=== PATIENT | female | born 1955 | race Caucasian/White ===

== ENCOUNTER 2018-02-02 17:07 | Inpatient (IN) | payer BC, MEDICAID ==
[~2018-02-02] VITALS: Ht 160 cm; Wt 68.0 kg
[2018-02-02] MEDS ORDERED: LEVO0.2T5 PO (17:11)
[2018-02-02] MEDS ORDERED: KEP500 PO (17:11)
[2018-02-02 17:12] VITALS: BP 171/136
[2018-02-02] MEDS ORDERED: TYLENOL 650MG PO (17:13)
[2018-02-02] MEDS ORDERED: MAGN400S60 PO (17:13)
[2018-02-02] MEDS ORDERED: DEXT1CAP3 PO (17:14)
[2018-02-02] MEDS ORDERED: OSC500 PO (17:17)
[2018-02-02] MEDS ORDERED: CALC-1214 PO (17:17)
[2018-02-02] MEDS ORDERED: NACL 0.9% 1,000 ML IV ONE (17:30)
--- NOTE | 2018-02-02 17:30 | NUR ---
PATIENT FROM F FOR ABNORMAL LABS WITH A TSH OF 100.72.Pt non verbal keeps on mumbling; VSS;No respiratory distress noted; all monitors in placed;Blood drawn and sent to lab; pt possition to comfort;needs attended;safety precaution instituted;Er Md aware of pt's condition;
[2018-02-02 17:54] LABS: HEMOGLOBIN 13.3 g/dL (12.0-16.0); MEAN CORPUSCULAR VOLUME 81.3 fL (80-94); RED BLOOD CELL COUNT(AUTO) 5.04 MIL/uL (4.20-5.40); WHITE BLOOD COUNT (AUTO) 7.9 K/uL (4.8-10.8)
[2018-02-02 17:55] LABS: BASOPHILS % (AUTO) 0.2 % (0.0-2.0); EOSINOPHILS # (AUTO) 0.1 K/uL (0-0.4); EOSINOPHILS % (AUTO) 0.7 % (0.0-4.0); LYMPHOCYTES # (AUTO) 1.7 K/uL (2.5-16.5); LYMPHOCYTES % (AUTO) 21.7 % (20.5-51.1); MEAN CORPUSCULAR HEMOGLOBIN 26 pg (27-31); MEAN CORPUSCULAR HGB CONC 33 g/dL (33-37); MONOCYTES # (AUTO) 0.7 K/uL (0.8-1.0); MONOCYTES % (AUTO) 8.3 % (1.7-9.3); NEUTROPHILS # (AUTO) 5.5 K/uL (1.8-7.7); NEUTROPHILS % (AUTO) 69.1 % (42.2-75.2); PLATELET COUNT (AUTO) 270 K/uL (140-450)
[2018-02-02 19:05] LABS: SODIUM SERUM 141 mmol/L (136-145)
[2018-02-02 19:06] LABS: ANION GAP 15.5 (8-16); CARBON DIOXIDE 27.2 mmol/L (21-32); CHLORIDE 102 mmol/L (98-107); CREATININE 0.9 mg/dL (0.6-1.3); GFR ARICAN-AMERICAN 81 mL/min (>90); GLUCOSE 119 mg/dL (74-106); POTASSIUM 3.7 mmol/L (3.5-5.1); UREA NITROGEN, BLOOD 14 mg/dL (7-18)
[2018-02-02 19:25] LABS: ASPARTATE AMINOTRANSFERASE 15 U/L (15-37); TOTAL BILIRUBIN 0.3 mg/dL (0.0-1.0)
[2018-02-02 19:26] LABS: ACETAMINOPHEN < 0.5 ug/ml (10-30); ALBUMIN 4.1 g/dL (3.4-5.0); SALICYLATE < 2.8 mg/dL (2.8-20.0)
[2018-02-02] MEDS ORDERED: NACL 0.9% 1,000 ML IV SCH (20:03)
[2018-02-02] MEDS ORDERED: DOCUSATE SODIUM 100 MG GELCAP PO PRN (20:05)
[2018-02-02] MEDS ORDERED: ACETAMINOPHEN 325 MG TAB PO PRN ×2 (20:05→20:55)
[2018-02-02] MEDS ORDERED: ONDANSETRON 4 MG/2 ML VIAL IM/IVP PRN (20:05)
[2018-02-02] MEDS ORDERED: LORazepam 2 MG/ML VIAL IVP PRN (20:55)
[2018-02-02] MEDS ORDERED: HYDROcodone/APAP 5/325 MG 1 TAB TAB PO PRN ×2 (20:55)
[2018-02-02] MEDS ORDERED: ONDANSETRON 4 MG/2 ML VIAL IVP PRN (20:55)
[2018-02-02 20:56] LABS: BARBITURATE, URINE NEGATIVE ng/ml (NEG <=200); BENZODIAZEPINE, URINE NEGATIVE ng/mL (NEG <=200); CANNABINOID, URINE NEGATIVE ng/mL (NEG <=50); COCAINE, URINE NEGATIVE ng/mL (NEG <=300); OPIATE, URINE NEGATIVE ng/mL (NEG <=2000); PHENCYCLIDINE SCREEN,URINE NEGATIVE ng/mL (NEG <=25)
[2018-02-02] MEDS ORDERED: NON-FORMULARY ITEM (Dextromethorphan HBr/Quinidine (Nuedexta 20-10 mg Capsule) 1 CAP) PO SCH (21:00)
[2018-02-02 21:03] LABS: APPEARANCE,URINE CLEAR (CLEAR); COLOR,URINE YELLOW (YELLOW)
[2018-02-02 21:04] LABS: BILIRUBIN,URINE NEGATIVE (NEGATIVE); BLOOD, URINE TRACE (NEGATIVE); LEUKOCYTE ESTERASE ,URINE 1+ (NEGATIVE); NITRITE, URINE NEGATIVE (NEGATIVE); UGLUCOSE NEGATIVE (NEGATIVE)
--- NOTE | 2018-02-02 21:21 | NUR ---
REPORT GIVEN AND CARE TRANSFERED TO JOSE BALLESTEROS. TRANSFERED TO ROOM 111B VIA [place] WITH VSS.
[2018-02-02 21:25] LABS: RBC,URINE 0-5 (RARE) /HPF (0-5)
[2018-02-02 21:26] LABS: URINE AMORPHOUS URATE 1+ /HPF (None Seen)
[2018-02-02 21:45] VITALS: BP 155/91
[2018-02-02] MEDS: NACL 0.9% 1,000 ML IV SCH (21:45)
--- NOTE | 2018-02-02 21:45 | NUR ---
RECEIVED PT FROM ER VIA [facility] REPORT GIVEN AT BED SIDE PT AOX1 FOLLOW SIMPLES COMMANDS NOT DISTRESS NOTED O IV ON RT HAND INFUSING WELL HL ON LEFT HAND PATENT ON TELEMETRY SR SKIN IS INTACT PT MUMBLING ORIENTED TO THE FLOOR CALL LIGHT WITHIN REACH MRSA NARES SCREEN DONE AND SENT TO LAB
[2018-02-02] MEDS: levETIRAcetam 500 MG TAB PO SCH (22:15)
--- NOTE | 2018-02-02 22:32 | NUR ---
PT REPOSITIONED A BIG BM SPONGE BATH GIVEN LIEN CHANGED
[2018-02-03] VITALS: BP 110/76
--- NOTE | 2018-02-03 01:00 | NUR ---
PT SLEEPING NOT SIGNS OF DISTRESS NOTED ON TELEMETRY SR REPOSITIONED Q2H , IV ON RT HAND INFUSING WELL
[2018-02-03 04:00] VITALS: BP 90/64
--- NOTE | 2018-02-03 04:30 | NUR ---
SPONGE BATH GIVEN LINEN CHANGED IV ON RT HAND INFUSING WELL REPOSITIONED Q2H ON TELEMETRY SR
[2018-02-03] MEDS ORDERED: LEVOTHYROXINE 200 MCG VIAL IV SCH (06:30)
[2018-02-03] MEDS: NACL 0.9% 1,000 ML IV SCH ×2 (06:54→20:58)
--- NOTE | 2018-02-03 07:00 | NUR ---
PT IS ENDORSED TO DOMINIC BALLESTEROS FOR CONTINUITY OF CARE, PT ON TELMETRY SR
--- NOTE | 2018-02-03 07:02 | NUR ---
RECEIVED BEDSIDE REPORT FROM RACKMAN NURSE. PATIENT IS AWAKE. ALERT AND ORIENTEDX1. SHE IS MUMBLING, THAT IS HER BASELINE. SHE IS BEDBOUND. BED ALARM IS ON. SKIN IS INTACT. SHE IS INCONTINENT. TELE MONITOR IN PLACE. R HAND 22G INFUSING NS AT 75ML/HR. IV IS CLEAN, DRY AND INTACT. L HAND 22G SALINE LOCK. BED IN LOW POSITION. CALL LIGHT WITHIN REACH. WILL CONTINUE TO MONITOR THE PATIENT
[2018-02-03 07:49] LABS: BASOPHILS % (AUTO) 0.3 % (0.0-2.0); EOSINOPHILS # (AUTO) 0.1 K/uL (0-0.4); EOSINOPHILS % (AUTO) 1.6 % (0.0-4.0); HEMATOCRIT 37.1 % (36-48); HEMOGLOBIN 12.1 g/dL (12.0-16.0); LYMPHOCYTES # (AUTO) 1.6 K/uL (2.5-16.5); LYMPHOCYTES % (AUTO) 26.2 % (20.5-51.1); MEAN CORPUSCULAR HEMOGLOBIN 26 pg (27-31); MEAN CORPUSCULAR HGB CONC 33 g/dL (33-37); MEAN CORPUSCULAR VOLUME 81.2 fL (80-94); MONOCYTES # (AUTO) 0.5 K/uL (0.8-1.0); MONOCYTES % (AUTO) 8.1 % (1.7-9.3); NEUTROPHILS # (AUTO) 3.8 K/uL (1.8-7.7); NEUTROPHILS % (AUTO) 63.8 % (42.2-75.2); PLATELET COUNT (AUTO) 249 K/uL (140-450); RED BLOOD CELL COUNT(AUTO) 4.57 MIL/uL (4.20-5.40); RED CELL DISTRIBUTION WIDTH 15.7 % (11.6-13.7); WHITE BLOOD COUNT (AUTO) 5.9 K/uL (4.8-10.8)
[2018-02-03 08:00] VITALS: BP 136/87
[2018-02-03 08:32] LABS: MAGNESIUM 1.9 mg/dL (1.8-2.4); PHOSPHORUS 3.7 mg/dL (2.5-4.9)
[2018-02-03 08:34] LABS: ANION GAP 15.7 (8-16); CREATININE 0.9 mg/dL (0.6-1.3); POTASSIUM 3.7 mmol/L (3.5-5.1); TOTAL BILIRUBIN 0.4 mg/dL (0.0-1.0)
[2018-02-03 08:35] LABS: ALBUMIN 3.6 g/dL (3.4-5.0)
--- NOTE | 2018-02-03 08:39 | NUR ---
PATIENT HAS BEEN SCREENED AND CATEGORIZED MODERATE NUTRITION RISK. PATIENT WILL BE SEEN WITHIN 3-5 DAYS OF ADMISSION. 02/05/18 02/07/[address]
--- NOTE | 2018-02-03 09:10 | NUR ---
ADMINISTER MEDS. PATIENT TOLERATED WELL. WILL CONTINUE TO MONITOR THE PATIENT,.
[2018-02-03] MEDS: LEVOTHYROXINE 200 MCG VIAL IV SCH (09:41)
[2018-02-03] MEDS: levETIRAcetam 500 MG TAB PO SCH ×2 (09:41→20:58)
[2018-02-03] MEDS: ENOXAPARIN 40 MG/0.4 ML SYR SUBQ SCH (09:46)
--- NOTE | 2018-02-03 11:00 | NUR ---
PATIENT IS SLEEPING. NO SIGNS OF DISTRESS ON ROOM AIR. WILL CONTINUE TO MONITOR THE PATIENT.
[2018-02-03 12:00] VITALS: BP 95/63
--- NOTE | 2018-02-03 12:54 | NUR ---
PATIENT BEING FED BY LEGAL FINANCIAL SPECIALIST. PATIENT TOLERATING WELL. WILL CONTINUE TO MONITOR THE PATIENT,
--- NOTE | 2018-02-03 13:00 | NUR ---
3RD TIME ATTEMPTING TO CALL DAUGHTER AT [phone] AND SISTER AT [phone] ABOUT POLST STATUS. CHELSEY BROWN CALLED AND TOLD ME SHE WAS DNR, DO NOT INTUBATE ONLY COMFORT MEASURES. DR SAXENA IS AWARE.
--- NOTE | 2018-02-03 13:31 | NUR ---
CM NOTE INITIAL REVIEW FAXED TO [facility] [phone] PH# [phone] AND TO [facility] [phone] PH# [phone]
--- NOTE | 2018-02-03 15:11 | NUR ---
PATIENT IS SITTING IN BED. MUMBLING AND WATCHING TV. NO SIGNS OF DISTRESS ON ROOM AIR. WILL CONTINUE TO MONITOR THE PATIENT.
[2018-02-03 16:00] VITALS: BP 109/45
--- NOTE | 2018-02-03 16:55 | NUR ---
PATIENT SITTING IN BED WATCHING TV. NO SIGNS OF DISTRESS ON ROOM AIR. BED IN LOW POSITION. BED ALARM IS ON.
--- NOTE | 2018-02-03 17:01 | NUR ---
PATIENT CURRENTLY REFUSING ENEMA. SHE SAID IT DOES NOT WORK FOR HER. THE ENEMA COMES RIGHT BACK OUT CAUSE SHE HAS NO CONTROL SHE SAID. DR PALACIO IS AWARE. WILL CONTINUE TO MONITOR THE PATIENT. Addendum: 02/03/18 at 1703 by Iqra Ferrer RN WRONG PATIENT
[2018-02-03] MEDS: CEPHALEXIN 500 MG CAP PO SCH (18:12)
--- NOTE | 2018-02-03 18:14 | NUR ---
ADMINISTERED MEDS. PATIENT TOLERATED WELL. SPUD GRADER IS CURRENTLY FEEDING HER. WILL CONTINUE TO MONITOR THE PATIENT
--- NOTE | 2018-02-03 19:10 | NUR ---
GAVE BEDSIDE REPORT TO MEDICAL DEVICE SALES CONSULTANT NURSE. PATIENT ENDORSED IN STABLE CONDITION.
--- NOTE | 2018-02-03 19:15 | NUR ---
RECEIVED REPORT FROM DAY SHIFT RN FOR CONTINUITY OF CARE. PT IS A/OX1, ON ROOM AIR. PT IS UNABLE TO MAKE NEEDS KNOWN. RESPIRATIONS EVEN AND UNLABORED AT THE MOMENT. PT SKIN IS INTACT. PT HAS 22G IV TO RIGHT HAND, ASYMPTOMATIC, INTACT AND PATENT. VITAL SIGNS WITHIN NORMAL LIMITS. PT STABLE, NO SIGNS OF DISTRESS NOTED AT THIS TIME. BED IN LOWEST POSITION, BED ALARM ON. CALL LIGHT WITHIN REACH, WILL CONTINUE TO MONITOR.
[2018-02-03 20:00] VITALS: BP 128/81
--- NOTE | 2018-02-03 20:59 | NUR ---
PT VERY AGITATED KEEPS SAYING "NO NO NO NO." ADMINISTERED ATIVAN ORDERED ALONG WITH SCHEDULED MEDICATION FOR SEIZURES. PT TOLERATED WELL, NO PROBLEMS SWALLOWING NOTED. WILL CONTINUE TO MONITOR PT.
[2018-02-04] VITALS: BP 107/57
[2018-02-04] MEDS: CEPHALEXIN 500 MG CAP PO SCH ×4 (00:05→18:00)
--- NOTE | 2018-02-04 00:10 | NUR ---
ADMINISTERED SCHEDULED ABX, PT TOLERATED WELL. VITAL SIGNS WITHIN NORMAL LIMITS. PT STABLE, NO SIGNS OF DISTRESS NOTED AT THIS TIME. BED IN LOWEST POSITION, BED ALARM ON. CALL LIGHT WITHIN REACH, WILL CONTINUE TO MONITOR.
[2018-02-04 04:00] VITALS: BP 101/63
--- NOTE | 2018-02-04 04:00 | NUR ---
VITAL SIGNS WITHIN NORMAL LIMITS. PT STABLE, NO SIGNS OF DISTRESS NOTED AT THIS TIME. BED IN LOWEST POSITION, BED ALARM ON. CALL LIGHT WITHIN REACH, WILL CONTINUE TO MONITOR.
--- NOTE | 2018-02-04 07:25 | NUR ---
ENDORSED PT TO DAY SHIFT RN FOR CONTINUITY OF CARE. PT IN STABLE CONDITION.
--- NOTE | 2018-02-04 07:26 | NUR ---
RECEIVED BEDSIDE REPORT FROM SILO FILLER NURSE. PATIENT IS SLEEPING. NO SIGNS OF DISTRESS ON ROOM AIR. SHE IS BEDBOUND. BED ALARM IS ON. SKIN IS INTACT. REMOVED IV ON L HAND IT IS NOT INTACT. CLEANSED IV ON R HAND 22G THERE WAS BLOOD. STILL PATENT. INFUSING NS AT 75ML/HR. TELE MONITOR IN PLACE. PATIENT IS INCONTINENT. WILL CONTINUE TO MONITOR THE PATIENT. BED IN LOW POSITION. CALL LIGHT WITHIN REACH
[2018-02-04 08:00] VITALS: BP 121/67
[2018-02-04] MEDS: ENOXAPARIN 40 MG/0.4 ML SYR SUBQ SCH (09:00)
[2018-02-04] MEDS: levETIRAcetam 500 MG TAB PO SCH (09:26)
[2018-02-04] MEDS: LEVOTHYROXINE 200 MCG VIAL IV SCH (09:26)
--- NOTE | 2018-02-04 09:37 | NUR ---
ADMINISTERED MEDS. PATIENT TOLERATED WELL. SHE REFUSED LOVENOX. SHE YELLED NO NO NO. AND HIT MY HAND WHEN I WAS ABOUT TO ADMINISTER LOVENOX. WILL CONTINUE TO MONITOR THE PATIENT.
--- NOTE | 2018-02-04 10:13 | NUR ---
CM NOTE CONCURRENT REVIEW FAXED TO [facility] [phone] PH# [phone] AND TO [facility] [phone] PH# [phone] PH# [phone]
--- NOTE | 2018-02-04 11:30 | NUR ---
PATIENT SITTING IN BED. NO SIGNS OF DISTRESS. WILL CONTINUE TO MONITOR THE PATIENT
[2018-02-04 12:00] VITALS: BP 124/72
--- NOTE | 2018-02-04 12:14 | NUR ---
CM NOTE RECEIVED CALL FROM [facility] VIANNEY EVANS PH# [phone] WHO STATED THAT FOR ANY DC NEEDS TO CONTACT [facility]. PER VIANNEY EVANS, IF PATIENT WILL NEED TRANSPORTATION TO GO TO SNF, TO USE [facility] PH# [phone] BECAUSE [facility] IS [facility] WITH THEM AND IF PATIENT WILL GO TO SNF RESIDENTIAL THERE IS NO AUTHORIZATION NEEDED BUT IF PATIENT IS GOING TO SNF WITH SKILLED NEED, TO CONTACT [facility] AFTER HOURS PH# [phone] FOR AUTHORIZATION.
--- NOTE | 2018-02-04 12:21 | NUR ---
ADMINISTERED MEDS. PATIENT TOLERATED WELL. WILL CONTINUE TO MONITOR THE PATIENT
--- NOTE | 2018-02-04 13:00 | NUR ---
Meat Process Worker Notes: I attempted to contact Patient's sister Anastasiya Abdul to discuss and gather additional information about Patient. Patient's sister was not available and did not respond the call. These sheet writer was unable to leave a MSG due to full voice mail.
--- NOTE | 2018-02-04 14:05 | NUR ---
Physician President Notes: I attempted to contact Patient's daughter Ines Batista at . to discuss and gather Patient's information. Patient's daughter was not available and I left her a MSG with my contact information and a request for a call back as soon as possible.
[2018-02-04] MEDS ORDERED: LEVO0.2T19 PO (14:10)
[2018-02-04] MEDS ORDERED: LEVO0.0511 PO (14:10)
[2018-02-04] MEDS ORDERED: CEPH500C16 PO (14:11)
[2018-02-04] MEDS: NACL 0.9% 1,000 ML IV SCH (14:44)
--- NOTE | 2018-02-04 15:07 | NUR ---
CM NOTE PER [facility] ADMISSIONS PERSON ANGEL # [phone], PATIENT CAN GO TO [address] A. SPOKE WITH MURPHY OF [facility] # [phone] AND REQUESTED PATIENT'S TRANSPORT BE SET UP WITH [facility], [employer] TIME 1600 TODAY. I ALSO GAVE [facility] THE NUMBER TO THE NURSING STATION WHERE PATIENT IS TO CONFIRM [employer]. CHARGE NURSE SHANELLE VALENTIN.
[2018-02-04 16:00] VITALS: BP 127/61
--- NOTE | 2018-02-04 16:08 | NUR ---
GAVE REPORT TO SARITA SCHRADER [facility]. ANSWERED ALL QUESTIONS AT THIS TIME. GAVE MY CALL BACK NUMBER. WILL CONTINUE TO MONITOR THE PATIENT.
--- NOTE | 2018-02-04 19:30 | NUR ---
GAVE BEDSIDE REPORT TO [facility]. PATIENT UNABLE TO UNDERSTAND DISCHARGE INFORMATION AND UNABLE TO SIGN. REMOVED ID BAND AND TELE MONITOR. IV REMOVED. TIP OF IV IS INTACT. ALL PAPERWORK AND BELONGINGS WITH EMT STAFF. FAMILY DID NOT ANSWER, CHARGE NURSE LEFT A MESSAGE.
== END 2018-02-04 19:30 | DRG 424 ==
LOC: MED 17:07 → MTU 20:52
PROVIDERS: ADMIT Hospitalist; ATTEND Hospitalist
DX: E03.9 Hypothyroidism, unspecified (principal); N39.0 Urinary tract infection, site not specified; F70 Mild intellectual disabilities; G40.909 Epilepsy, unspecified, not intractable, without status epilepticus; R73.9 Hyperglycemia, unspecified; R62.50 Unspecified lack of expected normal physiological development in childhood; Z85.850 Personal history of malignant neoplasm of thyroid; Z79.899 Other long term (current) drug therapy
CPT/HCPCS: 36415; 71045; 80053; 80305; 81001; 83735; 84100; 84439; 84443; 84481; 85025; 87081; 87086; 93005; 96360; 96361; 99285; C1758; G0480; G0482; J1650; J2060; J3490; J7030